=== PATIENT | female | born 1950 | race Caucasian/White ===

== ENCOUNTER 2016-09-11 12:55 | Inpatient (IN) | payer MEDICARE, OTHER ==
[~2016-09-11] VITALS: Ht 165.1 cm; Wt 106.6 kg
[2016-09-11] MEDS ORDERED: MORPHINE SULFATE INJ 4 MG/ML DISP.SYRIN ONE ×2 (12:58→13:08)
[2016-09-11] MEDS ORDERED: ONDANSETRON HCL/PF 4 MG/2 ML VIAL ONE ×2 (12:58→14:19)
[2016-09-11] MEDS ORDERED: IV SET PRIMARY PUMP SET 1 EA INFUS.SET MC ONE ×2 (12:58→17:37)
[2016-09-11] MEDS ORDERED: IV NS 0.9% 1,000 ML ONE (12:58)
[2016-09-11] MEDS ORDERED: ONDANSETRON HCL/PF 4 MG/2 ML VIAL IVP ONE (13:00)
[2016-09-11] MEDS ORDERED: MORPHINE SULFATE INJ 2 MG/ML DISP.SYRIN IV ONE ×2 (13:00→13:30)
[2016-09-11] MEDS ORDERED: IV NS 0.9% 1,000 ML BAG IV ONE (13:00)
--- NOTE | 2016-09-11 13:02 | NUR ---
AAOX3, BIB RA C/O EPIGASTRIC PAIN WITH NAUSEA, DENIES ANY VOMITING. SKIN IS WARM AND DRY. RESP IS EVEN AND UNLABORED WITH NAD NOTED. PLACED ON MONITOR. ASSISTED TO HOSPITAL GOWN. DEANA CORTES AT BS
[2016-09-11 13:05] LABS: BASOPHILS # (AUTO) 0.1 /CMM (0.0-0.2); EOSINOPHILS # (AUTO) 0.1 /CMM (0.0-0.7); LYMPHOCYTES # (AUTO) 2.6 /CMM (0.8-4.8); MONOCYTES # (AUTO) 0.4 /CMM (0.1-1.30); NEUTROPHILS # (AUTO) 4.5 /CMM (1.8-8.9); WHITE BLOOD COUNT (AUTO) 7.7 K/uL (4.3-11.0)
[2016-09-11 13:08] LABS: EOSINOPHILS % (AUTO) 1.9 % (0.0-6.0); HEMATOCRIT 36 % (33-45); HEMOGLOBIN 12.4 g/dL (11.5-14.8); MEAN CORPUSCULAR HEMOGLOBIN 30 PG (26.0-33.0); MEAN CORPUSCULAR HGB CONC 34 g/dl (31.0-36.0); MEAN CORPUSCULAR VOLUME 87 fL (82-100); MONOCYTES % (AUTO) 5.6 % (2.0-12.0); NEUTROPHILS % (AUTO) 58.5 % (43.0-81.0); PLATELET COUNT (AUTO) 199 /CMM (150-450); RDW COEFFICIENT OF VARIATION 12.4 (11.5-15.0); RED BLOOD CELL COUNT(AUTO) 4.17 MIL/uL (4.0-5.2)
[2016-09-11] MEDS ORDERED: FAMOTIDINE/PF INJ 20 MG/2 ML VIAL IV ONE ×2 (13:08→13:30)
[2016-09-11 13:15] LABS: CALCIUM, SERUM 9.5 mg/dL (8.5-10.1); CARBON DIOXIDE 31 mmol/L (21-32); CHLORIDE 106 mmol/L (98-107); CREATININE 0.7 mg/dL (0.6-1.3); GLUCOSE 102 mg/dL (74-106); POTASSIUM 3.6 mmol/L (3.5-5.1); SODIUM SERUM 142 mmol/L (136-145); UREA NITROGEN, BLOOD 21 mg/dL (7-18)
[2016-09-11 13:19] LABS: INR 1.08 (0.87-1.13); PROTHROMBIN TIME 11.2 SECS (9.5-12.7)
[2016-09-11 13:21] LABS: ALANINE AMINOTRANSFERASE 40 U/L (12-78); ALBUMIN 3.7 g/dL (3.4-5.0); ALKALINE PHOSPHATASE 76 U/L (46-116); ASPARTATE AMINOTRANSFERASE 50 U/L (15-37); BILIRUBIN,DIRECT 0.1 mg/dL (0.0-0.2); BILIRUBIN,TOTAL 0.3 mg/dL (0.2-1.0); LIPASE 726 U/L (73-393); TOTAL PROTEIN, SERUM 7.6 g/dL (6.4-8.2)
[2016-09-11] MEDS ORDERED: HYDROMORPHONE 1 MG/1 ML DISP.SYRIN ONE (13:21)
--- NOTE | 2016-09-11 13:22 | NUR ---
SPOKE WITH RINKU IN RADIOLOGY REGARDING US GALLBLADDER
[2016-09-11 13:23] LABS: TROPONIN I < 0.017 ng/mL (0.00-0.056)
[2016-09-11] MEDS ORDERED: HYDROMORPHONE 1 MG/1 ML DISP.SYRIN IV ONE (13:30)
[2016-09-11] MEDS ORDERED: LINA145C PO (14:05)
[2016-09-11] MEDS ORDERED: DONE5TAB34 PO (14:05)
[2016-09-11] MEDS ORDERED: SIMV40TA5 PO (14:05)
[2016-09-11] MEDS ORDERED: ESOM40CA PO (14:05)
[2016-09-11] MEDS ORDERED: TIOT18CA3 IH (14:05)
[2016-09-11] MEDS ORDERED: ERGO50003 PO (14:05)
[2016-09-11] MEDS ORDERED: APIX5TAB PO (14:05)
[2016-09-11] MEDS ORDERED: CHLO25TA2 PO (14:07)
[2016-09-11] MEDS ORDERED: AZIL40TA PO (14:07)
--- NOTE | 2016-09-11 14:12 | NUR ---
PAGED MASTER DYER FOR PANEL TIM MACIAS DNP
--- NOTE | 2016-09-11 14:17 | NUR ---
PATIENT CAME BACK FROM CT.
[2016-09-11] MEDS ORDERED: ONDANSETRON HCL/PF - ER 4 MG/2 ML VIAL IV ONE (14:30)
[2016-09-11] MEDS ORDERED: METOCLOPRAMIDE HCL 10 MG/2 ML VIAL ONE (14:41)
[2016-09-11] MEDS ORDERED: IV SET PRIMARY 1 EA INFUS.SET MC ONE (14:41)
[2016-09-11] MEDS ORDERED: IV NS 0.9% 50 ML IV ONE (14:41)
--- NOTE | 2016-09-11 14:42 | NUR ---
PAGED TIM MACIAS AGAIN INDUSTRIAL TRACTOR DRIVER FOR PANEL
--- NOTE | 2016-09-11 14:56 | NUR ---
M/S 206-2
[2016-09-11] MEDS ORDERED: METOCLOPRAMIDE HCL 10 MG/2 ML VIAL IV ONE (15:00)
--- NOTE | 2016-09-11 15:19 | NUR ---
Report given to LUCRETIA Han for SANDI MS 206-2
[2016-09-11 15:46] VITALS: BP 148/74
--- NOTE | 2016-09-11 15:56 | NUR ---
MS/reel film inspector Patient received from emergency with diagnosis of pancreatitis. Patient is A/OX3-4, [place]serratian speaking only, family unable to stay and answer any questions during admission process. All information gathered from chart.
[2016-09-11 16:00] VITALS: BP 148/74
[2016-09-11] MEDS ORDERED: Z GUARD REMEDY 2 OZ OINT TP PRN (17:00)
[2016-09-11] MEDS ORDERED: ZOLPIDEM TARTRATE 5 MG TABLET PO PRN (17:00)
[2016-09-11] MEDS ORDERED: MORPHINE SULFATE INJ 2 MG/ML DISP.SYRIN IV PRN (17:00)
[2016-09-11] MEDS ORDERED: IV NS 0.9% 1,000 ML IV PRN (17:00)
[2016-09-11] MEDS ORDERED: ACETAMINOPHEN 325 MG TABLET PO PRN (17:00)
[2016-09-11] MEDS: IV NS 0.9% 1,000 ML IV PRN (17:42)
[2016-09-11] MEDS: ONDANSETRON HCL/PF 4 MG/2 ML VIAL IVP PRN (17:47)
--- NOTE | 2016-09-11 19:06 | NUR ---
RN MS NOTES PATIENT IN BED, ASLEEP AT THIS TIME, ZOFRAN PROVIDED AND APPEARS TO BE EFFECTIVE, IVF INFUSING, ALL NEEDS ATTENDED, CALL LIGHT WITHIN REACH, WILL ENDORSE TO LAWYER PROBATE FOR SANDI.
--- NOTE | 2016-09-11 19:35 | NUR ---
MS RN NOTES RECEIVED PT IN BED, A/O X 4. VERBALLY RESPONSIVE. MARSHALLESE SPEAKING. NO DISTRESS, NO SOB NOTED AT THIS TIME . PT VERBALIZED THAT SHE FEELS BETTER NOW . IV SITE ON RIGHT HAND AND RAC INTACT AND PATENT, IVF INFUSING WELL. NO C/O N/V AT THIS TIME. ALL NEEDS ATTENDED AND MET. KEPT COMFORTABLE. WILL CONTINUE TO MONITOR.
[2016-09-11 19:42] VITALS: BP 144/77
[2016-09-11 20:00] VITALS: BP 144/70
[2016-09-11] MEDS ORDERED: ENOXAPARIN SODIUM 40 MG/0.4 ML DISP.SYRIN SQ SCH (21:00)
[2016-09-12 00:43] VITALS: BP 152/77
[2016-09-12] MEDS: ONDANSETRON HCL/PF 4 MG/2 ML VIAL IVP PRN (00:49)
[2016-09-12] MEDS: IV NS 0.9% 1,000 ML IV PRN ×2 (04:04→17:11)
--- NOTE | 2016-09-12 06:29 | NUR ---
MS RN NOTES PT IN BED, A/O X 4. VERBALLY RESPONSIVE. MAORI SPEAKING. NO DISTRESS, NO SOB NOTED AT THIS TIME . PT VERBALIZED THAT SHE FEELS BETTER. IV SITE ON RIGHT HAND AND RAC INTACT AND PATENT, IVF INFUSING WELL. NO C/O N/V AT THIS TIME. ALL NEEDS ATTENDED AND MET. KEPT COMFORTABLE. WILL ENDORSE TO NEXT SHIFT FOR SANDI.
[2016-09-12 06:38] LABS: BASOPHILS % (AUTO) 0.3 % (0.0-2.0); EOSINOPHILS # (AUTO) 0.1 /CMM (0.0-0.7); EOSINOPHILS % (AUTO) 1.2 % (0.0-6.0); HEMATOCRIT 32 % (33-45); HEMOGLOBIN 10.8 g/dL (11.5-14.8); LYMPHOCYTES % (AUTO) 28.4 % (20.0-44.0); MEAN CORPUSCULAR HEMOGLOBIN 30 PG (26.0-33.0); MEAN CORPUSCULAR HGB CONC 34 g/dl (31.0-36.0); MEAN CORPUSCULAR VOLUME 88 fL (82-100); MONOCYTES # (AUTO) 0.4 /CMM (0.1-1.30); MONOCYTES % (AUTO) 5.8 % (2.0-12.0); NEUTROPHILS # (AUTO) 4.5 /CMM (1.8-8.9); NEUTROPHILS % (AUTO) 64.3 % (43.0-81.0); PLATELET COUNT (AUTO) 152 /CMM (150-450); RDW COEFFICIENT OF VARIATION 13.7 (11.5-15.0); RED BLOOD CELL COUNT(AUTO) 3.62 MIL/uL (4.0-5.2)
[2016-09-12] MEDS: PANTOPRAZOLE 40 MG TABLET.DR PO SCH (06:38)
[2016-09-12 06:59] LABS: THYROID STIMULATING HORMONE 0.881 uIU/mL (0.358-3.74)
[2016-09-12 07:00] LABS: ALBUMIN 2.7 g/dL (3.4-5.0); BILIRUBIN,TOTAL 0.3 mg/dL (0.2-1.0); CALCIUM, SERUM 8.3 mg/dL (8.5-10.1); CREATININE 0.5 mg/dL (0.6-1.3); MAGNESIUM 1.6 mg/dL (1.8-2.4); PHOSPHORUS 3.6 mg/dL (2.5-4.9); POTASSIUM 3.2 mmol/L (3.5-5.1)
[2016-09-12 08:00] VITALS: BP 139/81
--- NOTE | 2016-09-12 08:00 | NUR ---
MS RN NOTES PATIENT IN BED RESTING NO SOB OR ACUTE DISTRESS NOTED. PERIPHERAL IV INTACT. BED IN LOW LOCKED POSITION. BED IN LOW LOCKED POSITION. WILL CONTINUE TO MONITOR.
--- NOTE | 2016-09-12 11:00 | NUR ---
MS RN NOTES PATIENT NOTES WITH BP OF 164/87 PULSE OF [address] TIM MACIAS WAITING FOR CALL BACK. WILL CONTINUE TO MONITOR.
[2016-09-12] MEDS ORDERED: SECONDARY IV SET 1 EA INFUS.SET MC ONE (12:59)
[2016-09-12] MEDS: Magnesium 1GM/D5W 100ML PREMIX 100 ML IV SCH ×2 (13:06→14:16)
[2016-09-12] MEDS: POTASSIUM CHLORIDE 20 MEQ TAB.PRT.SR PO SCH ×2 (13:06→14:16)
[2016-09-12] MEDS ORDERED: TIOTROPIUM BROMIDE 6 CAP/BOX CAP.W.DEV IH PRN (15:30)
[2016-09-12] MEDS ORDERED: IPRATROPIUM NEB FS 0.5 MG/2.5 ML AMPUL.NEB NEB PRN (15:30)
[2016-09-12] MEDS ORDERED: HYDROCODONE/APAP 5/325MG 1 EACH TABLET PO PRN (15:30)
--- NOTE | 2016-09-12 15:30 | NUR ---
MS RN NOTES PATIENT SEEN AND EVALUATED BY DR. TIM MACIAS ORDERS NOTED AND CARRIED OUT.
[2016-09-12 16:00] VITALS: BP_SYST 126; BP_SYST 133; BP_DIAS 73; BP_DIAS 89
--- NOTE | 2016-09-12 16:00 | NUR ---
MS RN NOTES PATIENT ASKED FOR ELIQUIS MEDICATION TO BE BROUGHT FROM HOME. PATIENT STATES WILL HAVE FAMILY BRING IT EITHER TODAY OR TOMORROW MORNING.
[2016-09-12] MEDS: APIXABAN 5 MG TABLET PO SCH (17:26)
[2016-09-12] MEDS ORDERED: SIMVASTATIN 40 MG TABLET PO SCH (18:00)
--- NOTE | 2016-09-12 18:30 | NUR ---
MS RN NOTES PATIENT IN BED RESTING NO SOB OR ACUTE DISTRESS NOTED. PERIPHERAL IV ON RIGHT AC INTACT PATENT RUNNING PRESCRIBED FLUIDS. ALL DUE MEDICATIONS ADMINISTERED. ALL NEEDS MET. WILL ENDORSE TO PM SHIFT SANDI.
--- NOTE | 2016-09-12 19:31 | NUR ---
MS RN NOTES RECEIVED RESTING COMFORTABLY ON BED A/O X4,MONGOLIAN,UNDERSTAND LAO.DENIES ABDOMINAL PAIN.PRESENT IVF INFUSING WELL ON RIGHT AC,SITE PATENT.CALL RICO IN REACH,NEEDS ANTICIPATED.
[2016-09-12 20:00] VITALS: BP 132/73
--- NOTE | 2016-09-12 22:12 | NUR ---
MS RN NOTES NO CHANGE IN STATUS.DENIES PAIN,POSSIBLE D/C HOME IN THE MORNING.REPORT GIVEN TO BÁRBARA BOYKIN FOR SANDI.
--- NOTE | 2016-09-12 22:17 | NUR ---
MS RN INITIAL NOTE PT RECEIVED IN BED, A/O X 3, NO S/S OF RESPIRATORY DISTRESS OR SOB. SAFE ENVIRONMENT PROVIDED FREE OF CLUTTERS. IV SITE INTACT WITH NO S/S OF INFILTRATION NOTED.BED IN LOCKED, LOW POSITION. CALL LIGHT WITHIN EASY REACH. WILL CONTINUE TO MONITOR.
[2016-09-13 06:30] LABS: BASOPHILS % (AUTO) 0.5 % (0.0-2.0); EOSINOPHILS # (AUTO) 0.2 /CMM (0.0-0.7); EOSINOPHILS % (AUTO) 2.5 % (0.0-6.0); HEMATOCRIT 31 % (33-45); HEMOGLOBIN 10.5 g/dL (11.5-14.8); LYMPHOCYTES # (AUTO) 2.1 /CMM (0.8-4.8); LYMPHOCYTES % (AUTO) 30.2 % (20.0-44.0); MEAN CORPUSCULAR HEMOGLOBIN 30 PG (26.0-33.0); MEAN CORPUSCULAR HGB CONC 34 g/dl (31.0-36.0); MEAN CORPUSCULAR VOLUME 89 fL (82-100); MONOCYTES # (AUTO) 0.4 /CMM (0.1-1.30); MONOCYTES % (AUTO) 5.6 % (2.0-12.0); NEUTROPHILS # (AUTO) 4.3 /CMM (1.8-8.9); NEUTROPHILS % (AUTO) 61.2 % (43.0-81.0); PLATELET COUNT (AUTO) 138 /CMM (150-450); RDW COEFFICIENT OF VARIATION 13.3 (11.5-15.0); RED BLOOD CELL COUNT(AUTO) 3.52 MIL/uL (4.0-5.2)
--- NOTE | 2016-09-13 06:43 | NUR ---
MS RN CLOSING NOTES PATIENT COMFORTABLY ASLEEP AND EASILY AWAKEN, HEAD OF BED ELEVATED FOR BETTER LUNG EXPANSION, TOLERATING ROOM AIR. 97% R.A IV HYDRATION ONGOING NS AT 100 CC, IV SITE NO S/S OF INFILTRATED, PATIENT DENIES PAIN AT THIS TIME. 0/10 RESPIRATIONS EVEN AND UNLABORED. LUNG SOUNDS CLEAR UPON AUSCULTATION, NO S/S OF ACUTE DISTRESS, NO SOB, NO COUGH, NO CONGESTION, SKIN WARM AND DRY TO TOUCH, AFEBRILE, ALL NURSING CARE NEEDS PROVIDED AND RENDERED, NEEDS ATTENDED AND ANTICIPATED, KEPT CLEAN AND DRY AND COMFORTABLE, BLADDER NOT DISTENDED, GOOD SKIN CARE PROVIDED. FREQUENT VISUAL CHECK DONE FOR SAFETY EVERY 2 HOURS SAFE HAZARD FREE ENVIRONMENT PROVIDED. CALL LIGHT WITHIN EASY TO REACH, ON LOW BED AT ALL TIMES TO ENSURE SAFETY, WILL ENDORSE TO THE NEXT SHIFT CONTINUE PLAN OF CARE.
[2016-09-13 07:00] LABS: ALBUMIN 2.7 g/dL (3.4-5.0); BILIRUBIN,TOTAL 0.2 mg/dL (0.2-1.0); CALCIUM, SERUM 8.3 mg/dL (8.5-10.1); CREATININE 0.6 mg/dL (0.6-1.3); MAGNESIUM 1.6 mg/dL (1.8-2.4); PHOSPHORUS 3.2 mg/dL (2.5-4.9); POTASSIUM 3.3 mmol/L (3.5-5.1); TOTAL PROTEIN, SERUM 5.9 g/dL (6.4-8.2)
[2016-09-13] MEDS: PANTOPRAZOLE 40 MG TABLET.DR PO SCH (07:19)
--- NOTE | 2016-09-13 07:26 | NUR ---
MS RN NOTES RECEIVED PATIENT RESTING IN BED COMFORTABLY ASLEEP AND EASILY AWAKEN, NO ACUTE DISTRESS, DISCOMFORT NOTED, DENIES PAIN. NO SOB NOTED, ON ROOM AIR, 02 SAT OF 99%. IV TO RIGHT AC HYDRATION ONGOING NS AT 100 CC. SAFETY MEASURES RENDERED. CALL LIGHT WITHIN EASY TO REACH, ON LOW BED AT ALL TIMES TO ENSURE SAFETY, WILL CONTINUE TO MONITOR.
[2016-09-13 08:00] VITALS: BP 152/93
[2016-09-13 08:02] VITALS: BP 152/93
[2016-09-13] MEDS: APIXABAN 5 MG TABLET PO SCH (09:00)
[2016-09-13] MEDS ORDERED: ERGOCALCIFEROL (VITAMIN D 2) 50,000 UNIT CAPSULE PO SCH (09:00)
[2016-09-13] MEDS ORDERED: DONEPEZIL 5 MG TABLET PO SCH (09:00)
--- NOTE | 2016-09-13 10:05 | NUR ---
MS/WAITER/WAITRESS ROOM SERVICE NOTES PATIENT READY FOR DISCHARGE. ALL DISCHARGE INSTRUCTIONS GIVEN, FORMS COMPLETED AND SIGNED. PATIENT VERBALIZED DISCHARGE INSTRUCTIONS GIVEN. IV REMOVED AND COVERED. REVIEWED ALL CURRENT ORDERS FOR MEDICATIONS. PATIENT TAKEN DOWN TO LOBBY FOR PICKUP BY NEIGHBOR. PATIENT LEFT VIA PRIVATE CAR.
--- NOTE | 2016-09-13 10:10 | NUR ---
MS/RN NOTES INFORMED PATIENT TO STAY FOR POSSIBLE MAG AND POTASSIUM REPLACEMENT HOWEVER PATIENT WAS ANXIOUS TO LEAVE, REFUSING REPLACEMENT. PATIENT DISCHARGED.
[2016-09-13] MEDS ORDERED: POTASSIUM CHLORIDE 20 MEQ TAB.PRT.SR PO ONE (10:30)
[2016-09-13] MEDS ORDERED: Magnesium 1GM/D5W 100ML PREMIX 100 ML IV SCH (10:30)
== END 2016-09-13 10:15 | disposition home or self-care (01) | DRG 440 ==
LOC: ER 12:56 → MEDSG2 15:21
PROVIDERS: ADMIT Nurse Practitioner Acute Care; ATTEND Nurse Practitioner Acute Care
DX: K85.90 Acute pancreatitis without necrosis or infection, unspecified (principal); Z86.73 Personal history of transient ischemic attack (TIA), and cerebral infarction without residual deficits; K21.9 Gastro-esophageal reflux disease without esophagitis; I10 Essential (primary) hypertension; E78.5 Hyperlipidemia, unspecified; M19.90 Unspecified osteoarthritis, unspecified site; Z79.01 Long term (current) use of anticoagulants; K29.70 Gastritis, unspecified, without bleeding; R79.89 Other specified abnormal findings of blood chemistry; Z90.49 Acquired absence of other specified parts of digestive tract; T50.2X5A Adverse effect of carbonic-anhydrase inhibitors, benzothiadiazides and other diuretics, initial encounter; Y92.009 Unspecified place in unspecified non-institutional (private) residence as the place of occurrence of the external cause
CPT/HCPCS: 36415; 76705-TC; 80048-TC; 80053-TC; 80061-TC; 80076-TC; 83690-TC; 83735-TC; 84100-TC; 84443-TC; 84484-TC; 85025-TC; 85730-TC; 87081-TC; 93307-TC; A4216; A4606; J1170; J1650; J2270; J2405; J2765; J3475; J3490; J7030; Z7610

== ENCOUNTER 2016-12-19 22:58 | Emergency (ER) | payer MEDICARE, OTHER ==
[~2016-12-19] VITALS: Ht 167.6 cm; Wt 68.0 kg
[~2016-12-19 22:58] MED LIST: APIX5TAB PO; AZIL40TA PO; DONE5TAB34 PO; ERGO50003 PO; ESOM40CA PO; LINA145C PO; SIMV40TA5 PO; TIOT18CA3 IH
--- NOTE | 2016-12-19 22:58 | NUR ---
TO BED 3 BIB PARAMEDICS C/O MID EPIGASTRIC ABD PAIN WITH N/V X 1.5 HOURS MORTGAGE LENDER. PT AAOX4 NO ACUTE DISTRESS NOTED, RESP EVEN AND UNLABORED. PLACE PT ON CARDAIC MONITORING, CONTINUOUS POX. PENDING ER MD GREENE.
--- NOTE | 2016-12-19 23:00 | NUR ---
ER MD AT BEDSIDE TO EVAL PT WITH ORDERS RECEIVED.
[2016-12-19] MEDS ORDERED: ONDANSETRON HCL/PF 4 MG/2 ML VIAL ONE (23:22)
[2016-12-19] MEDS ORDERED: MORPHINE SULFATE INJ 4 MG/ML DISP.SYRIN ONE (23:22)
--- NOTE | 2016-12-19 23:29 | NUR ---
BLOOD DRAWN BY FLEXOGRAPHIC PRESS PLATE SETTER.
[2016-12-19] MEDS ORDERED: ONDANSETRON HCL/PF 4 MG/2 ML VIAL IVP ONE (23:30)
[2016-12-19] MEDS ORDERED: IV NS 0.9% 1,000 ML BAG IV ONE (23:30)
[2016-12-19] MEDS ORDERED: MORPHINE SULFATE INJ 2 MG/ML DISP.SYRIN IV ONE (23:30)
--- NOTE | 2016-12-19 23:31 | NUR ---
PT FAMILY MEMBER AT BEDSIDE.
--- NOTE | 2016-12-19 23:33 | NUR ---
PT TRANSPORTED TO RADIOLOGY FOR CT ABD/PELVIS.
[2016-12-19 23:42] LABS: BASOPHILS % (AUTO) 0.5 % (0.0-2.0); EOSINOPHILS # (AUTO) 0.1 /CMM (0.0-0.7); EOSINOPHILS % (AUTO) 1.1 % (0.0-6.0); HEMATOCRIT 37 % (33-45); HEMOGLOBIN 12.2 g/dL (11.5-14.8); LYMPHOCYTES # (AUTO) 1.6 /CMM (0.8-4.8); LYMPHOCYTES % (AUTO) 16.6 % (20.0-44.0); MEAN CORPUSCULAR HEMOGLOBIN 30 PG (26.0-33.0); MEAN CORPUSCULAR HGB CONC 33 g/dl (31.0-36.0); MEAN CORPUSCULAR VOLUME 89 fL (82-100); MONOCYTES # (AUTO) 0.5 /CMM (0.1-1.30); MONOCYTES % (AUTO) 5.3 % (2.0-12.0); NEUTROPHILS # (AUTO) 7.4 /CMM (1.8-8.9); NEUTROPHILS % (AUTO) 76.5 % (43.0-81.0); PLATELET COUNT (AUTO) 161 /CMM (150-450); RDW COEFFICIENT OF VARIATION 13.1 (11.5-15.0); WHITE BLOOD COUNT (AUTO) 9.7 K/uL (4.3-11.0)
[2016-12-19 23:55] LABS: INR 1.06 (0.87-1.13); PROTHROMBIN TIME 11.4 SECS (9.5-12.7)
[2016-12-19 23:57] LABS: ALANINE AMINOTRANSFERASE 37 U/L (12-78); ALBUMIN 3.3 g/dL (3.4-5.0); ALKALINE PHOSPHATASE 83 U/L (46-116); ASPARTATE AMINOTRANSFERASE 36 U/L (15-37); BILIRUBIN,DIRECT 0.1 mg/dL (0.0-0.2); BILIRUBIN,TOTAL 0.2 mg/dL (0.2-1.0); CALCIUM, SERUM 8.6 mg/dL (8.5-10.1); CARBON DIOXIDE 27 mmol/L (21-32); CHLORIDE 107 mmol/L (98-107); CREATININE 0.8 mg/dL (0.6-1.3); GLUCOSE 87 mg/dL (74-106); LIPASE 258 U/L (73-393); POTASSIUM 3.6 mmol/L (3.5-5.1); SODIUM SERUM 141 mmol/L (136-145); TOTAL PROTEIN, SERUM 6.7 g/dL (6.4-8.2); UREA NITROGEN, BLOOD 15 mg/dL (7-18)
[2016-12-19 23:59] LABS: TROPONIN I < 0.017 ng/mL (0.00-0.056)
--- NOTE | 2016-12-19 23:59 | NUR ---
PT RETURN FROM RADIOLOGY
[2016-12-20 00:55] LABS: APPEARANCE,URINE CLEAR (CLEAR); BILIRUBIN,URINE NEGATIVE (NEGATIVE); BLOOD, URINE NEGATIVE Ery/uL (NEGATIVE); COLOR,URINE YELLOW (YELLOW); KETONES,URINE NEGATIVE (NEGATIVE); LEUKOCYTE ESTERASE ,URINE NEGATIVE (NEGATIVE); NITRITE, URINE NEGATIVE (NEGATIVE); PROTEIN,URINE NEGATIVE (NEGATIVE); UGLUCOSE NEGATIVE (NEGATIVE); UROBILINOGEN,URINE 0.2 EU/dL (0.2)
--- NOTE | 2016-12-20 01:12 | NUR ---
ER MD AT BEDSIDE TALKING TO PT AND PT FAMILY MEMBERS REGARIDNG LAB AND CT RESULT. PENDING DISPOSITION.
[2016-12-20] MEDS ORDERED: MAG HYDROX/AL HYDROX/SIMETH 30 ML UDC ONE (01:18)
--- NOTE | 2016-12-20 01:24 | NUR ---
IV removed. Catheter intact and site benign. Pressure and 4x4 applied to site. No bleeding noted. Patient discharged to home in stable condition. Written and verbal after care instructions given. Patient verbalizes understanding of instruction. ambulatory with a steady gait noted. pt family members at bedside to take pt home.
[2016-12-20 01:26] VITALS: BP 134/62
[2016-12-20] MEDS ORDERED: MAG HYDROX/AL HYDROX/SIMETH 30 ML UDC PO ONE (01:30)
== END 2016-12-20 01:27 | disposition home or self-care (01) ==
LOC: ER 23:00
DX: K29.70 Gastritis, unspecified, without bleeding (principal); I10 Essential (primary) hypertension; K85.90 Acute pancreatitis without necrosis or infection, unspecified; Z79.01 Long term (current) use of anticoagulants; Z86.73 Personal history of transient ischemic attack (TIA), and cerebral infarction without residual deficits; Z90.89 Acquired absence of other organs; Z88.8 Allergy status to other drugs, medicaments and biological substances
CPT/HCPCS: 36415; 71010; 74176; 80048; 80076; 81001; 83690; 84484; 85025; 85730; 93005; 96361; 96374; 96375; 99285; A4606; J2270; J2405; J7030; 81000-TC; Z7610